=== PATIENT | male | born 1995 | race Caucasian/White ===

== ENCOUNTER 2021-10-15 11:13 | Emergency (ER) | payer OTHER ==
[2021-10-15] MEDS ORDERED: ANUSOL-HC25 MG PR (13:24)
== END 2021-10-15 13:30 | disposition home or self-care (01) ==
LOC: ER1 11:13
DX: K64.9 Unspecified hemorrhoids (principal); F17.220 Nicotine dependence, chewing tobacco, uncomplicated
CPT/HCPCS: 99282